=== PATIENT | male | born 1960 | race Caucasian/White ===

== ENCOUNTER 2016-10-09 16:38 | Emergency (ER) | payer OTHER ==
[~2016-10-09] VITALS: Ht 182.8 cm; Wt 136.1 kg
[~2016-10-09 16:38] MED LIST: ASPIRIN81 M1 PO; BACTRIM DS 8001 TA1 PO; HYDROCODONE BIT1 T11 PO; KEFLEX500 MG PO; VICODIN ES 7501 TAB PO
== END 2016-10-09 18:53 | disposition home or self-care (01) ==
LOC: ED 16:38
DX: S80.811A Abrasion, right lower leg, initial encounter (principal); S00.81XA Abrasion of other part of head, initial encounter; Z79.899 Other long term (current) drug therapy; V47.5XXA Car driver injured in collision with fixed or stationary object in traffic accident, initial encounter; Y93.89 Activity, other specified; Y92.89 Other specified places as the place of occurrence of the external cause; Y99.8 Other external cause status

== ENCOUNTER 2017-10-01 19:48 | Emergency (ER) | payer OTHER ==
[~2017-10-01] VITALS: Ht 182.8 cm; Wt 131.5 kg
[2017-10-01] MEDS ORDERED: FLONASE ALLERG9.9 ML NAS (20:58)
[2017-10-01] MEDS ORDERED: DOXYCYCLINE100 M3 PO (20:58)
[2017-10-01] MEDS ORDERED: PREDNISONE20 M1 PO (20:58)
[2017-10-01] MEDS ORDERED: TESSALON PERLE100 M1 PO (20:58)
== END 2017-10-01 21:17 | disposition home or self-care (01) ==
LOC: ED 19:48
DX: J40 Bronchitis, not specified as acute or chronic (principal); Z90.49 Acquired absence of other specified parts of digestive tract; Z79.82 Long term (current) use of aspirin

== ENCOUNTER 2020-10-17 21:54 | Emergency (ER) | payer OTHER ==
[~2020-10-17] VITALS: Ht 182.8 cm; Wt 133.8 kg
[~2020-10-17 21:54] MED LIST changes: +DOXYCYCLINE100 M3 PO; +FLONASE ALLERG9.9 ML NAS; +PREDNISONE20 M1 PO; +TESSALON PERLE100 M1 PO
[2020-10-17] MEDS ORDERED: SEPTDS PO (23:12)
[2020-10-17] MEDS ORDERED: IBUPROFEN600 MG PO (23:12)
== END 2020-10-17 23:26 | disposition home or self-care (01) ==
LOC: ED 21:54
DX: L72.3 Sebaceous cyst (principal); Z79.2 Long term (current) use of antibiotics; Z79.899 Other long term (current) drug therapy; Z90.49 Acquired absence of other specified parts of digestive tract

== ENCOUNTER 2022-06-09 09:51 | Emergency (ER) | payer OTHER ==
[~2022-06-09] VITALS: Ht 182.8 cm; Wt 133.8 kg
[~2022-06-09 09:51] MED LIST changes: +IBUPROFEN600 MG PO; +SEPTDS PO
[2022-06-09 10:46] LABS: BASO # 0.1 10*3/uL (0.0-0.1); BASO % 0.4 % (0.0-1.0); EOS # 0.1 10*3/uL (0.0-0.4); EOS % 0.7 % (1.0-4.0); HEMATOCRIT 50.4 % (42.0-52.0); LYMPH # 2.2 10*3/uL (1.3-4.4); LYMPH % 14.1 % (27.0-41.0); MEAN CELL VOLUME 86.4 fl (80.0-94.0); MEAN CORPUSCULAR HGB 30.2 pg (27.0-31.0); MEAN CORPUSCULAR HGB CONC 34.9 g/dl (33.0-37.0); MEAN PLATELET VOLUME 9.5 fl (9.6-12.3); MONO # 1.2 10*3/uL (0.1-1.0); MONO % 7.7 % (3.0-9.0); NEUT # 11.7 10*3/uL (2.3-7.9); NEUT % 76.8 % (47.0-73.0); PLATELET COUNT AUTOMATED 153 10*3/uL (130-400); RED BLOOD COUNT 5.83 10*6/uL (4.50-5.90); RED CELL DISTRI WIDTH 13.7 % (0-14.5); WHITE BLOOD COUNT 15.3 10*3/uL (4.8-10.8)
[2022-06-09 11:02] LABS: ALKALINE PHOSPHATASE 54 U/L (46-116); BUN 10 mg/dl (9-23); CHLORIDE 101 mmol/L (98-107); POTASSIUM 4.2 mmol/L (3.4-5.1); SGPT/ALT 15 U/L (10-49); TOTAL PROTEIN 6.7 gm/dL (6.0-8.0)
[2022-06-09 11:59] LABS: BILIRUBIN 1+ (Negative); BLOOD 3+ (Negative); CLARITY Turbid (Clear); COLOR Orange (Yellow); GLUCOSE Negative (Negative); KETONE Trace (Negative); LEUKO ESTERASE 3+ (Negative); NITRITE Positive (Negative); PH 5.5 (4.5-8.0); SPECIFIC GRAVITY 1.025 (1.001-1.030)
[2022-06-09 12:13] LABS: BACTERIA 2+; RBC TNTC rbc/hpf (0-2); WBC TNTC wbc/hpf (0-5)
[2022-06-09] MEDS ORDERED: CIPRO500 MG PO (12:25)
== END 2022-06-09 12:40 | disposition home or self-care (01) ==
LOC: ED 09:51
PROVIDERS: Internal Medicine
DX: N39.0 Urinary tract infection, site not specified (principal); Z90.49 Acquired absence of other specified parts of digestive tract

== ENCOUNTER → 2023-10-18 | Outpatient (CLI) | payer OTHER ==
[~2023-10-18] MED LIST changes: +CIPRO500 MG PO
== END | disposition home or self-care (01) ==
LOC: US 08:36
PROVIDERS: ATTEND Family Medicine
DX: R22.1 Localized swelling, mass and lump, neck (principal)

== ENCOUNTER → 2023-10-26 | Outpatient (CLI) | payer OTHER ==
[~2023-10-26] MED LIST changes: +SODIUM BICARBONATE 4.2% 5 ML VIAL ONE
[2023-10-27 10:09] LABS: ACID FAST SPEC PROCESSING Tissue Grinding (.)
== END | disposition home or self-care (01) ==
LOC: SDC 11:00 → EDSTATUS 11:00
PROVIDERS: ATTEND Student in an Organized Health Care Education/Training Program
DX: R59.0 Localized enlarged lymph nodes (principal); D11.9 Benign neoplasm of major salivary gland, unspecified

== ENCOUNTER 2025-03-08 20:24 | Emergency (ER) | payer OTHER ==
[~2025-03-08] VITALS: Ht 182.8 cm; Wt 133.8 kg
[~2025-03-08 20:24] MED LIST changes: -SODIUM BICARBONATE 4.2% 5 ML VIAL ONE
[2025-03-08] MEDS ORDERED: METFORMIN XR500 MG PO (21:18)
[2025-03-08] MEDS ORDERED: LIPITOR20 MG PO (21:18)
[2025-03-08] MEDS ORDERED: JARDIANCE10 MG PO (21:19)
[2025-03-08] MEDS ORDERED: Acetaminophen/Oxycodone 5 MG/325 MG TABLET PO ONE (23:55)
[2025-03-09] MEDS ORDERED: PERCOCET 5-3251 EACH PO (00:01)
== END 2025-03-09 00:39 | disposition home or self-care (01) ==
LOC: ED 20:24
DX: S82.144A Nondisplaced bicondylar fracture of right tibia, initial encounter for closed fracture (principal); Z79.84 Long term (current) use of oral hypoglycemic drugs; Z79.899 Other long term (current) drug therapy; Z90.49 Acquired absence of other specified parts of digestive tract; X58.XXXA Exposure to other specified factors, initial encounter; Y93.89 Activity, other specified; Y92.89 Other specified places as the place of occurrence of the external cause; Y99.8 Other external cause status